=== PATIENT | female | born 1985 | race African-American/Black ===

== ENCOUNTER 2016-08-10 06:01 | Emergency (ER) | payer MEDICAID, OTHER ==
[~2016-08-10] VITALS: Ht 162.6 cm; Wt 104.5 kg
[~2016-08-10 06:01] MED LIST: PRENCAP6 PO
[2016-08-10 06:17] VITALS: BP 149/77; PULSE 76; RESP 18; TEMP 98.8; O2SAT 100
[2016-08-10 06:31] VITALS: BP 149/77; PULSE 76; RESP 18; TEMP 98.8; O2SAT 100
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
[2016-08-10] MEDS ORDERED: KETOROLAC TROMETHAMINE 60 MG/2 ML (IM) VIAL IM ONE (07:30)
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
[2016-08-10] MEDS ORDERED: META800T81 PO (07:57)
== END 2016-08-10 08:05 | disposition home or self-care (01) ==
LOC: PHED 06:01
DX: M54.5 Low back pain (principal)
CPT/HCPCS: 72110; 84703; 96372; 99283; J1885

== ENCOUNTER 2016-11-02 21:18 | Emergency (ER) | payer MEDICAID, OTHER ==
[~2016-11-02] VITALS: Ht 162.6 cm; Wt 99.2 kg
[~2016-11-02 21:18] MED LIST changes: +META800T81 PO; -PRENCAP6 PO
[2016-11-02 21:31] VITALS: BP 134/82; PULSE 94; RESP 16; TEMP 98.2; O2SAT 99
[2016-11-02 21:46] VITALS: BP 142/82; PULSE 87; RESP 18; TEMP 98.2; O2SAT 100
[2016-11-02] MEDS ORDERED: SODIUM CHLOR 0.9% 1000 ML INJ 1,000 ML IV SCH (22:50)
--- NOTE | 2016-11-02 22:57 | PD ---
HPI Chief Complaint: GI Complaint Time Seen by Provider: 22:47 Travel History International Travel<30 days: No Contact w/Intl Traveler<30days: No Traveled to known affect area: No History of Present Illness HPI The patient is a 31-year-old female that has been vomiting for 6 hours. She has some periumbilical pain along with the vomiting. She denies any diarrhea or fever. She states there is an unlikely possibility of . [facility] Past Medical History Diabetes: Yes (Pre-) Patient Takes Glucophage: No Diminished Hearing: No Integumentary: Yes (Eczema) Immunizations Current: No Tetanus Vaccination: Unknown Influenza Vaccination: Yes ?: Not LMP: 11/02/16 : 1 Past Surgical History Section: Yes Social History Alcohol Use: No Tobacco Use: No Substance Use: Yes (Marijuana occ.) Allergies-Medications (Allergen,Severity, Reaction): Coded Allergies: No Known Allergies (Verified , 11/02/16) Reported Meds & Prescriptions Reported Meds & Active Scripts Active No Active Prescriptions or Reported Medications Review of Systems Except as stated in HPI: all other systems reviewed are Neg Physical Exam Narrative GENERAL: The patient is alert, oriented 3 in minimal apparent distress with her primary medical pain. Her vital signs show pulse rate of 94 but otherwise normal. She appears minimally dehydrated. SKIN: Focused skin assessment warm/dry. HEAD: Atraumatic. Normocephalic. EYES: Pupils equal and round. No scleral icterus. No injection or drainage. ENT: No nasal bleeding or discharge. Mucous membranes pink and moist. NECK: Trachea midline. No JVD. CARDIOVASCULAR: Regular rate and rhythm. No murmur appreciated. RESPIRATORY: No accessory muscle use. Clear to auscultation. Breath sounds equal bilaterally. GASTROINTESTINAL: Abdomen soft, with minimal discomfort to direct palpation in the periumbilical area, nondistended. Hepatic and splenic margins not palpable. No guarding or rebound is present. MUSCULOSKELETAL: No obvious deformities. No clubbing. No cyanosis. No edema. NEUROLOGICAL: Awake and alert. No obvious cranial nerve deficits. Motor grossly within normal limits. Normal speech. PSYCHIATRIC: Appropriate mood and affect; insight and judgment normal. Data Data Last Documented VS Vital Signs Date Time Temp Pulse Resp B/P Pulse Ox O2 Delivery O2 Flow Rate FiO2 11/02/16 23:15 18 98 11/02/16 21:46 98.2 87 142/82 Orders Beta Hcg (Quant/Titer) (11/02/16 22:50) Complete Blood Count With Diff (11/02/16 22:50) Comprehensive Metabolic Panel (11/02/16 22:50) Lipase (11/02/16 22:50) Urinalysis - C+S If Indicated (11/02/16 22:50) Iv Access Insert/Monitor (11/02/16 22:50) Ecg Monitoring (11/02/16 22:50) Oximetry (11/02/16 22:50) Ondansetron Inj (Zofran Inj) (11/02/16 23:00) Sodium Chlor 0.9% 1000 Ml Inj (Ns 1000 M (11/02/16 22:50) Sodium Chloride 0.9% Flush (Ns Flush) (11/02/16 23:00) Urine Culture (11/02/16 22:20) Labs Laboratory Tests Test 11/02/16 22:20 White Blood Count 6.6 TH/MM3 Red Blood Count 4.74 MIL/MM3 Hemoglobin 13.6 GM/DL Hematocrit 40.9 % Mean Corpuscular Volume 86.3 FL Mean Corpuscular Hemoglobin 28.6 PG Mean Corpuscular Hemoglobin 33.2 % Concent Red Cell Distribution Width 13.5 % Platelet Count 229 TH/MM3 Mean Platelet Volume 9.4 FL Neutrophils (%) (Auto) 75.2 % Lymphocytes (%) (Auto) 18.4 % Monocytes (%) (Auto) 5.3 % Eosinophils (%) (Auto) 0.7 % Basophils (%) (Auto) 0.4 % Neutrophils # (Auto) 5.0 TH/MM3 Lymphocytes # (Auto) 1.2 TH/MM3 Monocytes # (Auto) 0.4 TH/MM3 Eosinophils # (Auto) 0.0 TH/MM3 Basophils # (Auto) 0.0 TH/MM3 CBC Comment DIFF FINAL Differential Comment Urine Color PINK Urine Turbidity CLOUDY Urine pH GREATER/EQUAL 9.0 Urine Specific [place] 1.022 Urine Protein 100 mg/dL Urine Glucose (UA) NEG mg/dL Urine Ketones 15 mg/dL Urine Occult Blood LARGE Urine Nitrite NEG Urine Bilirubin NEG Urine Leukocyte Esterase SMALL Urine RBC 100-200 /hpf Urine WBC 9-14 /hpf Urine Squamous Epithelial > 8 /hpf Cells Urine Bacteria OCC /hpf Microscopic Urinalysis Comment CULTURE INDICATED Sodium Level 138 MEQ/L Potassium Level 3.6 MEQ/L Chloride Level 103 MEQ/L Carbon Dioxide Level 25.2 MEQ/L Anion Gap 10 MEQ/L Blood Urea Nitrogen 11 MG/DL Creatinine 0.81 MG/DL Estimat Glomerular Filtration 99 ML/MIN Rate Random Glucose 119 MG/DL Calcium Level 9.0 MG/DL Total Bilirubin 0.4 MG/DL Aspartate Amino Transf 16 U/L (AST/SGOT) Alanine Aminotransferase 31 U/L (ALT/SGPT) Alkaline Phosphatase 86 U/L Total Protein 8.2 GM/DL Albumin 3.7 GM/DL Lipase 101 U/L Human Chorionic Gonadotropin, LESS THAN 1 Quant MIU/ML MDM Medical Decision Making Medical Screen Exam Complete: Yes Emergency Medical Condition: Yes Medical Record Reviewed: Yes Interpretation(s) The CBC is normal. The complete metabolic profile is normal and the beta-hCG is less than 1. The urine shows pink and color, large blood, 15 ketones, small leukocyte Estrace with 100-200 red cells and 9-14 white cells and culture is indicated. Differential Diagnosis Gastritis, urinary tract infection, reflux esophagitis Narrative Course The patient appears to have gastritis and a UTI. She will get Bactrim DS for 10 days and a prescription for Phenergan. She should increase her liquid intake and follow-up with her primary care physician next week. It is now 001 8 AM and the patient feels better and wants to go home. Diagnosis Primary Impression: Gastritis Additional Impression: UTI (urinary tract infection) Additional Instructions: Increase your liquid intake to establish a good urine flow through your kidneys. The Nausea medication as one every 6 hours as needed. The antibiotic is free at [facility] pharmacy. Med/Other Pt SpecificInfo: Prescription(s) given Scripts Promethazine (Phenergan)25 Mg Tab25 Mg PO Q6H PRN (Nausea/Vomiting) #30 TAB Ref 0 Prov:Aayush Cain MD 11/03/16 Sulfamethoxazole-Trimethoprim (Bactrim DS)800-160 Mg Tab1 Tab PO BID #20 TAB Ref 0 Prov:Aayush Cain MD 11/03/16 Disposition: 01 DISCHARGE HOME Condition: Stable Aayush Cain MD November 02, 2016 22:57
[2016-11-02] MEDS ORDERED: SODIUM CHLORIDE 0.9% FLUSH 10 ML FLUSH IV FLUSH PRN (23:00)
[2016-11-02] MEDS ORDERED: ONDANSETRON HCL 4 MG/2 ML VIAL IVP ONE (23:00)
[2016-11-02 23:15] VITALS: RESP 18; O2SAT 98
[2016-11-02 23:27] LABS: BLOOD, URINE LARGE (NEG); GLUCOSE,URINE NEG (NEG); KETONE, URINE 15 mg/dL (NEG); NITRITE,URINE NEG (NEG)
[2016-11-02 23:30] LABS: BASOPHIL % 0.4 % (0.0-2.0); EOSINOPHIL % 0.7 % (0.0-4.0); HEMATOCRIT 40.9 % (35.0-46.0); LYMPH % 18.4 % (9.0-44.0); LYMPHOCYTE # 1.2 TH/MM3 (1.0-4.8); MEAN CELL VOLUME 86.3 FL (80.0-100.0); MEAN CORPUSCULAR HEMOGLOBIN 28.6 PG (27.0-34.0); MEAN CORPUSCULAR HGB CONC 33.2 % (32.0-36.0); MONO % 5.3 % (0.0-8.0); NEUT % 75.2 % (16.0-70.0); PLATELET COUNT 229 TH/MM3 (150-450); RED BLOOD COUNT 4.74 MIL/MM3 (4.00-5.30); RED CELL DISTRIBUTION WIDTH 13.5 % (11.6-17.2); WHITE BLOOD COUNT 6.6 TH/MM3 (4.0-11.0)
[2016-11-02 23:32] LABS: PH, URINE GREATER/EQUAL 9.0 (5.0-8.5)
[2016-11-02 23:33] LABS: URINE COLOR PINK (YELLW/STRAW)
[2016-11-02 23:37] LABS: BACTERIA, URINE OCC /hpf; COMMENT (UR) CULTURE INDICATED; CULTURE IF INDICATED CULTURE INDICATED; RBC, URINE 100-200 /hpf (0-3); SQUAMOUS EPITHELIAL CELL URINE > 8 /hpf (0-5)
[2016-11-02 23:40] LABS: HEMO FLAGS DIFF FINAL
[2016-11-02 23:49] LABS: CHLORIDE 103 MEQ/L (98-107); POTASSIUM 3.6 MEQ/L (3.5-5.1); SODIUM (NA) 138 MEQ/L (136-145)
[2016-11-02 23:53] LABS: ANION GAP 10 MEQ/L (5-15); BICARBONATE 25.2 MEQ/L (21.0-32.0); BLOOD UREA NITROGEN 11 MG/DL (7-18)
[2016-11-02 23:55] LABS: ALT (GPT) 31 U/L (10-53); AST (GOT) 16 U/L (15-37)
[2016-11-02 23:56] LABS: GLOMERULAR FILTRATION RATE 99 ML/MIN (>89)
[2016-11-02 23:57] LABS: TOTAL BILIRUBIN ADULT 0.4 MG/DL (0.2-1.0)
[2016-11-02 23:58] LABS: ALKALINE PHOSPHATASE 86 U/L (45-117)
[2016-11-03 00:01] LABS: BETA HCG QUANT LESS THAN 1 MIU/ML (0-5)
[2016-11-03] MEDS ORDERED: BACT800T5 PO (00:18)
[2016-11-03] MEDS ORDERED: PROM25TA5 PO (00:18)
[2016-11-03] MEDS ORDERED: SULFAMETHOXAZOLE-TRIMETHOPRIM DS 800-160 MG TAB PO ONE (00:30)
[2016-11-03 00:37] VITALS: BP 130/80; PULSE 92; RESP 18; O2SAT 99
== END 2016-11-03 00:42 | disposition home or self-care (01) ==
LOC: PHED 21:18
DX: K29.70 Gastritis, unspecified, without bleeding (principal); N39.0 Urinary tract infection, site not specified; R73.03 Prediabetes; Z87.2 Personal history of diseases of the skin and subcutaneous tissue
CPT/HCPCS: 80053; 81001; 83690; 84702; 85025; 87086; 96361; 96374; 99284; J2405; J7030